=== PATIENT | female | born 1995 | race Caucasian/White ===

== ENCOUNTER 2017-10-06 22:07 | Emergency (ER) | payer OTHER | END 2017-10-07 01:34 | disposition left against medical advice (07) | LOC: M ED 22:07 | DX: R51 Headache (principal); Z53.21 Procedure and treatment not carried out due to patient leaving prior to being seen by health care provider ==

== ENCOUNTER → 2017-11-22 | Outpatient (CLI) | payer OTHER ==
[2017-11-22 17:47] LABS: BASO % 0.1 % (0.0-1.0); EOS # 0.1 10^3/uL (0.0-0.50); EOS % 0.9 % (0.0-3.0); HEMATOCRIT 37.8 % (36.0-47.0); IMMATURE GRANULOCYTE % 0.3 % (0-3.0); LYMPH # 2.6 10^3/uL (1.5-6.5); MEAN CORPUSCULAR HEMOGLOBIN 30.2 pg (27.0-33.0); MEAN CORPUSCULAR HGB CONC 34.4 g/dl (32.0-36.5); MEAN CORPUSCULAR VOLUME 87.7 fl (80.0-96.0); MONO # 0.8 10^3/uL (0.0-0.8); MONO % 8.5 % (0.0-5.0); NEUTROPHILS # 5.5 10^3/uL (1.8-7.7); NEUTROPHILS % 61.2 % (36.0-66.0); PLATELET COUNT, AUTOMATED 209 10^3/uL (150-450); RED BLOOD COUNT 4.31 10^6/uL (4.00-5.40); RED CELL DISTRIBUTION WIDTH 12.9 % (11.5-14.5)
[2017-11-22 23:03] LABS: CHLAMYDIA DNA AMPLIFICATION NEGATIVE (NEGATIVE); GC DNA AMPLIFICATION NEGATIVE (NEGATIVE)
[2017-11-24 10:32] LABS: HBsAg Prenatal NEGATIVE (NEGATIVE); HIV 1&2 SCREEN CENTAUR NEGATIVE (NEGATIVE); RUBELLA IgG QUALITATIVE IMMUNE (IMMUNE)
[2017-11-24 10:32] LABS: HEPATITIS C VIRUS ABY INDEX 0.1 INDEX (<0.8)
== END ==
LOC: M LAB 16:10
DX: Z34.81 Encounter for supervision of other normal pregnancy, first trimester (principal); Z3A.01 Less than 8 weeks gestation of pregnancy
CPT/HCPCS: 86762

== ENCOUNTER → 2018-01-24 | Outpatient (CLI) | payer OTHER | LOC: M RAD 13:55 | DX: O32.1XX0 Maternal care for breech presentation, not applicable or unspecified (principal); Z36.89 Encounter for other specified antenatal screening; Z3A.18 18 weeks gestation of pregnancy | CPT/HCPCS: 76811 ==

== ENCOUNTER → 2018-02-25 | Outpatient (CLI) | payer OTHER ==
--- NOTE | 2018-02-25 16:13 | REP ---
Clinical: Anatomical evaluation. Comparison: 01/24/2018 . Findings: Examination demonstrates a single live intrauterine in cephalic presentation. motion is identified by technologist. Placenta is noted anterior and grade grade 1 without evidence for placenta previa or abruption. Amniotic fluid volume is normal. Cervix measures 3.5 cm in length and appears closed. Nuchal cord cannot be excluded. Gestational age by LMP 23 weeks 1 day with BESSY the 06/23/2018 . Gestational age by current measurements 23 weeks 4 days with BESSY 06/20/2018 . FHR equals 141 beats per minute. Estimated weight 589 grams ( 54th percentile). Anatomical assessment demonstrates normal structures including cranium, choroid plexus, cavum, cerebellum/posterior fossa, facial features, lungs, four-chamber heart/ventricular outflow tracts, diaphragm, stomach, cord insertion/three-vessel cord, kidneys/bladder, spine, and extremities. Impression: 1. Single live intrauterine in cephalic presentation demonstrating appropriate interval growth. 2. Nuchal cord cannot be excluded. 3. Anatomical assessment is complete and normal. No gross abnormalities are identified. Electronically Signed by Fidel Simon MD 02/25/2018 04:04 P
== END ==
LOC: M RAD 09:02
PROVIDERS: ATTEND Advanced Practice Midwife
DX: Z34.02 Encounter for supervision of normal first pregnancy, second trimester (principal)

== ENCOUNTER → 2018-03-25 | Outpatient (CLI) | payer OTHER ==
[2018-03-25 11:35] LABS: HEMATOCRIT 33.9 % (36.0-47.0); HEMOGLOBIN 11.5 g/dl (12.0-15.5); MEAN CORPUSCULAR HEMOGLOBIN 30.6 pg (27.0-33.0); MEAN CORPUSCULAR HGB CONC 33.9 g/dl (32.0-36.5); MEAN CORPUSCULAR VOLUME 90.2 fl (80.0-96.0); PLATELET COUNT, AUTOMATED 236 10^3/uL (150-450); RED BLOOD COUNT 3.76 10^6/uL (4.00-5.40); WHITE BLOOD COUNT 9.9 10^3/uL (4.0-10.0)
== END ==
LOC: M LAB 10:05
PROVIDERS: ATTEND Advanced Practice Midwife
DX: Z34.02 Encounter for supervision of normal first pregnancy, second trimester (principal)

== ENCOUNTER → 2018-04-18 | Outpatient (CLI) | payer OTHER ==
[2018-04-18 15:05] LABS: CREATININE,RANDOM URINE 64.3 MG/DL; TOTAL PROTEIN,RANDOM URINE 10.4 MG/DL (0.0-12.0)
[2018-04-18 15:37] LABS: ALT/SGPT 13 U/L (12-78); BILIRUBIN,TOTAL 0.2 MG/DL (0.2-1.0); CREATININE FOR GFR 0.52 MG/DL (0.55-1.30); LDH LACTATE DEHYDROGENASE 178 U/L (84-246); URIC ACID 2.9 MG/DL (2.6-6.0)
== END ==
LOC: M LAB 14:12
PROVIDERS: ATTEND Obstetrics & Gynecology
DX: O16.3 Unspecified maternal hypertension, third trimester (principal); Z3A.00 Weeks of gestation of pregnancy not specified

== ENCOUNTER → 2018-04-21 | Outpatient (REF) | payer OTHER ==
[2018-04-21 13:51] LABS: INFLUENZA A AMPLIFICATION NEGATIVE (NEGATIVE); INFLUENZA B AMPLIFICATION NEGATIVE (NEGATIVE)
== END ==
LOC: M LAB REF 13:02
PROVIDERS: ATTEND Physician Assistant
DX: J11.1 Influenza due to unidentified influenza virus with other respiratory manifestations (principal)

== ENCOUNTER → 2018-04-22 | Outpatient (CLI) | payer OTHER ==
--- NOTE | 2018-04-22 14:34 | REP ---
Obstetric ultrasound for growth: There is a single intrauterine gestation in a vertex presentation. There is motion and cardiac activity. The heart rate is 142 beats per minute. The placenta is anterior without previa or abruptio with grade 2 maturity. The amniotic fluid volume subjectively is normal. The cervix measures 3.8 cm length. Gestational age by the ultrasound today is 31 weeks 4 days/BESSY 06/20/2018. Gestational age by the first ultrasound is 31 weeks 5 days/BESSY 06/19/2018 . Gestational age by LMP is 31 weeks 4 days/BESSY 06/23/2018. weight is 1803 grams (3 pounds, 15 ounces). This is the 53rd percentile for 31 weeks 1 day. Amniotic fluid index is 14.0 ( 0.8 - 23.8). Umbilical artery mid cord Doppler assessment: S/D ratio 2.80 (2.30-3.30) Resistive Index 0.64 (0.59-0.75 Diastolic Velocity 13.6 (>10 cm/sec) Electronically Signed by Suhail Tyson MD 04/22/2018 02:26 P
== END ==
LOC: M RAD 13:05
PROVIDERS: ATTEND Obstetrics & Gynecology
DX: O16.3 Unspecified maternal hypertension, third trimester (principal); Z3A.31 31 weeks gestation of pregnancy

== ENCOUNTER → 2018-05-13 | Outpatient (CLI) | payer OTHER ==
--- NOTE | 2018-05-13 12:32 | REP ---
OB ULTRASOUND: Real-time sonographic evaluation of the gravid uterus is performed. There is a single living intrauterine gestation with an estimated gestational age 34 weeks 1 day, EDC 06/23/2018. Today's measurements indicate appropriate growth. Biometry and Growth: BPD 85 mm = 34 weeks 3 days, 54th percentile HC 318 mm = 35 weeks 5 days, 74th percentile AC 297 mm = 33 weeks 5 days, 44th percentile FL 67 mm = 34 weeks 3 days, 55th percentile HC/AC ratio 1.07 within normal range. Estimated weight 2368 grams, 48th percentile. SEEN/GROSSLY UNREMARKABLE Lateral ventricles Yes Posterior fossa No Upper lip Yes Four-chamber heart Yes LVOT Yes RVOT Yes Stomach Yes Cord insertion Yes Three vessel cord Yes Kidneys Yes Bladder Yes Spine No Cervical length: Closed and measures 3 cm in length. heart rate: 147 beats per minute. position: Vertex. Placenta: Anterior and grade 2 to 3 with no previa or abruption. Amniotic fluid: Within normal limits, ALIDA 9.3 within normal range of 8.1 to 24.8. S/D ratio: 2.73. RI: 0.63 within normal range. Electronically Signed by Suhail Sahu MD 05/16/2018 11:09 A
== END ==
LOC: M RAD 10:54
PROVIDERS: ATTEND Advanced Practice Midwife
DX: O13.3 Gestational [pregnancy-induced] hypertension without significant proteinuria, third trimester (principal); Z3A.34 34 weeks gestation of pregnancy

== ENCOUNTER → 2018-05-18 | Outpatient (CLI) | payer OTHER ==
[2018-05-18 13:21] LABS: HEMATOCRIT 32.7 % (36.0-47.0); HEMOGLOBIN 10.6 g/dl (12.0-15.5); MEAN CORPUSCULAR HEMOGLOBIN 29.2 pg (27.0-33.0); MEAN CORPUSCULAR HGB CONC 32.4 g/dl (32.0-36.5); MEAN CORPUSCULAR VOLUME 90.1 fl (80.0-96.0); PLATELET COUNT, AUTOMATED 196 10^3/uL (150-450); RED BLOOD COUNT 3.63 10^6/uL (4.00-5.40); WHITE BLOOD COUNT 11.5 10^3/uL (4.0-10.0)
[2018-05-18 13:58] LABS: ALT/SGPT 14 U/L (12-78); BILIRUBIN,TOTAL 0.2 MG/DL (0.2-1.0); CREATININE FOR GFR 0.65 MG/DL (0.55-1.30); GLOMERULAR FILTRATION RATE > 60.0 (>60); LDH LACTATE DEHYDROGENASE 211 U/L (84-246); URIC ACID 4.2 MG/DL (2.6-6.0)
[2018-05-18 14:24] LABS: CREATININE,RANDOM URINE 19.8 MG/DL; TOTAL PROTEIN,RANDOM URINE 5.5 MG/DL (0.0-12.0)
== END ==
LOC: M SMT 10:24
PROVIDERS: ATTEND Advanced Practice Midwife
DX: O13.3 Gestational [pregnancy-induced] hypertension without significant proteinuria, third trimester (principal)

== ENCOUNTER → 2018-05-20 | Outpatient (CLI) | payer OTHER ==
[2018-05-20 12:05] LABS: CREATININE, SERUM 0.6 MG/DL (0.6-1.0)
[2018-05-20 12:06] LABS: CREATININE 24 HOUR, URINE 1606.8 MG/24HR (600-1800); CREATININE, URINE 61.8 MG/DL; TOTAL PROTEIN 24 HOUR URINE 301.6 MG/24HR (50-150); URINE TOTAL PROTEIN 11.6 MG/DL (0-12)
[2018-05-20 12:06] LABS: CREATININE, URINE 61.8 MG/DL
== END ==
LOC: M LAB 10:12
PROVIDERS: ATTEND Advanced Practice Midwife
DX: O13.3 Gestational [pregnancy-induced] hypertension without significant proteinuria, third trimester (principal)

== ENCOUNTER → 2018-06-01 | Outpatient (CLI) | payer OTHER ==
[~2018-06-01] MED LIST: COLA100C5 PO; IBUP-1114 PO; MAPA500T2 PO; MOM30SS PO; PRENTAB9 PO
--- NOTE | 2018-06-01 14:58 | REP ---
Clinical: well-being Comparison: 05/13/2018 . Findings: Examination demonstrates a single live intrauterine in cephalic presentation. motion is identified by technologist. Placenta is noted anterior and grade grade III without evidence for placenta previa or abruption. Amniotic fluid volume is normal. Cervix measures 3.8 cm in length and appears closed. No evidence for nuchal cord. Gestational age by LMP 36 weeks 6 days with BESSY 06/23/2018 . Gestational age by current measurements 36 weeks 5 days with BESSY 06/24/2018 . FHR equals 136 beats per minute. BPD 9.0 cm 36 weeks 4 days HC 31.6 cm 35 weeks 3 days AC 33.9 cm 37 weeks 6 days FL 7.2 cm 36 weeks 4 days HL 6.4 cm 36 weeks 6 days HC/AC ratio 0.93 Estimated weight 3123 grams ( 57 percentile). Amniotic fluid index: 9.2 cm (7.5 - 24.5) Umbilical cord SD ratio: 2.51 (1.64 - 2.64) Impression: Single live advanced gestation in cephalic presentation demonstrating appropriate interval growth. No gross abnormalities are identified Electronically Signed by Fidle Simon MD 06/01/2018 02:49 P
== END ==
LOC: M RAD 11:18
PROVIDERS: ATTEND Advanced Practice Midwife
DX: O13.3 Gestational [pregnancy-induced] hypertension without significant proteinuria, third trimester (principal); Z3A.36 36 weeks gestation of pregnancy

== ENCOUNTER 2018-06-02 19:30 | Inpatient (IN) | payer OTHER ==
[~2018-06-02] VITALS: Ht 175.3 cm; Wt 93.7 kg
[2018-06-02 19:51] VITALS: BP 127/72
[2018-06-02] MEDS ORDERED: miSOPROStol 50 MCG 1/2 TAB (S0191) As Ordered ONE (20:27)
[2018-06-02 20:28] LABS: HEMATOCRIT 31.9 % (36.0-47.0); HEMOGLOBIN 10.6 g/dl (12.0-15.5); MEAN CORPUSCULAR HEMOGLOBIN 28.9 pg (27.0-33.0); MEAN CORPUSCULAR HGB CONC 33.2 g/dl (32.0-36.5); MEAN CORPUSCULAR VOLUME 86.9 fl (80.0-96.0); PLATELET COUNT, AUTOMATED 186 10^3/uL (150-450); RED BLOOD COUNT 3.67 10^6/uL (4.00-5.40); WHITE BLOOD COUNT 10.7 10^3/uL (4.0-10.0)
[2018-06-02] MEDS: miSOPROStol 50 MCG 1/2 TAB (S0191) SL SCH (20:42)
--- NOTE | 2018-06-02 21:31 | HPE ---
DATE OF ADMISSION: 06/02/2018 HISTORY: 23-year-old G-1 at 37 0/7 weeks gestation by 7 week ultrasound, estimated date of confinement (EDC) of 06/23/2018 presents for labor induction due to diagnosis of preeclampsia. She had multiple elevated blood pressures in recent weeks starting at 33 weeks gestation. She had 24 urine which showed 301 mg of protein. Denies contractions or vaginal bleeding. She denies any headaches or blurred vision. COURSE: The patient received care at 12 weeks gestation on 11/04/2017. Her first trimester blood pressure was 130/76, weight 163 pounds. She developed hypertension at 33 plus weeks gestation on 05/10/2018. She had a blood pressure of 152/88. She did complain intermittently of headaches, as well as lower extremity edema. MEDICAL HISTORY: Noncontributory. SURGICAL HISTORY: None. ALLERGIES: None. SOCIAL HISTORY: The patient denies cigarettes, alcohol or drug use. Father of baby is involved. She lives in [place]. FAMILY HISTORY: Noncontributory. PHYSICAL EXAMINATION: Blood pressure 127/72, pulse 84. She is no apparent distress. Head and neck exam: Normal. Lungs clear. Heart regular rate and rhythm. Abdomen nontender, . heart tones category I. Sterile vaginal exam: Closed cervix, 50% efface, -2+ posterior, vertex moderate consistency. Extremities: Nontender with trace edema. LABORATORY: Blood type B positive, rubella immune, RPR nonreactive. Group B streptococcus (GBS) negative on 05/27/2018 ASSESSMENT: 23-year-old G-1, 37 weeks gestation, diagnosed with preeclampsia. PLAN: The patient is admitted on 06/02/2018. A repeat preeclampsia profile. Risk of induction were discussed.
[2018-06-02 21:56] LABS: ALT/SGPT 13 U/L (12-78); BILIRUBIN,TOTAL 0.1 MG/DL (0.2-1.0); CREATININE FOR GFR 0.61 MG/DL (0.55-1.30); GLOMERULAR FILTRATION RATE > 60.0 (>60); LDH LACTATE DEHYDROGENASE 229 U/L (84-246); URIC ACID 3.9 MG/DL (2.6-6.0)
[2018-06-02 22:53] VITALS: BP 108/54
[2018-06-03] VITALS (56 sets, daily range): BP systolic 99–162; BP diastolic 56–114
[2018-06-03] MEDS: miSOPROStol 50 MCG 1/2 TAB (S0191) SL SCH ×2 (01:10→05:20)
[2018-06-03] MEDS ORDERED: OXYTOCIN DRIP 30 UNITS in APPROPRIATE DILUENT 1 EA IV SCH (09:15)
--- NOTE | 2018-06-03 09:16 | IPNPDOC ---
Text Note Date of Service The patient was seen on 06/03/18. NOTE Remains comfortable UC irregular, mild FH 135, Cat I tracing SVE /-1. Light bloody show Cooks Catheter placed . Start Pitocin Dr Maynard aware of pt status VS,Fishbone, I+O VS, Fishbone, I+O Laboratory Tests 06/02/18 20:22 Red Blood Count 3.67 L, Mean Corpuscular Volume 86.9, Mean Corpuscular Hemoglobin 28.9, Mean Corpuscular Hemoglobin Concent 33.2, Red Cell Distribution Width 13.2, Aspartate Amino Transf (AST/SGOT) 21, Alanine Aminotransferase (ALT/SGPT) 13, Lactate Dehydrogenase 229, Total Bilirubin 0.1 L, Uric Acid 3.9 Vital Signs Date Time Temp Pulse Resp B/P (MAP) Pulse Ox O2 Delivery O2 Flow Rate FiO2 06/03/18 05:22 87 128/86 (100) 06/03/18 03:00 97.5 I&O- Last 24 Hours up to 6 AM 06/03/18 06:00 Intake Total 1000 ml Output Total 2 ml Balance 998 ml Marcela Palacios CNM Jun 03, 2018 09:16
[2018-06-03] MEDS: LR 1,000 ML IV SCH ×3 (09:42→17:11)
[2018-06-03] MEDS ORDERED: PROMETHAZINE INJ 25 MG/ML VIAL (J2550) IV ONE (10:00)
[2018-06-03] MEDS ORDERED: BUTORPHANOL 2 MG/ML INJ (J0595) IV ONE (10:00)
--- NOTE | 2018-06-03 16:56 | IPNPDOC ---
Text Note Date of Service The patient was seen on 06/03/18. NOTE Reporting increased discomfort UC 2-4 minutes apart x 45-60 seconds, moderate FH 135, moderate variability, Cat I SVAngie lopez catheter sitting in vagina, /-1, moderate bloody show Pt is requesting epidural VS,Fishbone, I+O VS, Fishbone, I+O Laboratory Tests 06/02/18 20:22 Red Blood Count 3.67 L, Mean Corpuscular Volume 86.9, Mean Corpuscular Hemoglobin 28.9, Mean Corpuscular Hemoglobin Concent 33.2, Red Cell Distribution Width 13.2, Aspartate Amino Transf (AST/SGOT) 21, Alanine Aminotransferase (ALT/SGPT) 13, Lactate Dehydrogenase 229, Total Bilirubin 0.1 L, Uric Acid 3.9 Vital Signs Date Time Temp Pulse Resp B/P (MAP) Pulse Ox O2 Delivery O2 Flow Rate FiO2 06/03/18 15:04 97.9 06/03/18 15:03 71 16 122/75 (91) I&O- Last 24 Hours up to 6 AM 06/03/18 06:00 Intake Total 1000 ml Output Total 2 ml Balance 998 ml Marcela Palacios CNM Jun 03, 2018 16:56
[2018-06-03] MEDS ORDERED: FENTANYL 2MCG/ML ROPIVACAINE 0.2% IN 0.9% NACL 100ML IVBAG As Ordered ONE (17:09)
[2018-06-03 17:24] LABS: HEMATOCRIT 32.2 % (36.0-47.0); HEMOGLOBIN 10.5 g/dl (12.0-15.5); MEAN CORPUSCULAR HEMOGLOBIN 28.2 pg (27.0-33.0); MEAN CORPUSCULAR HGB CONC 32.6 g/dl (32.0-36.5); MEAN CORPUSCULAR VOLUME 86.6 fl (80.0-96.0); PLATELET COUNT, AUTOMATED 189 10^3/uL (150-450); RED BLOOD COUNT 3.72 10^6/uL (4.00-5.40)
[2018-06-03] MEDS ORDERED: FENTANYL/ROPIVACAINE/NACL BAG 100 ML EPIDURAL SCH (18:30)
[2018-06-03] MEDS ORDERED: REFRIGERATOR IV KEYS XX PRN (18:30)
[2018-06-03] MEDS ORDERED: EPIDURAL/PCA KEYS XX PRN (18:30)
[2018-06-03] MEDS ORDERED: LACTATED RINGER'S 1000 ML IV PRN (18:30)
[2018-06-03] MEDS ORDERED: NALOXONE INJ 0.4 MG/1 ML VIAL (J2310) IV PRN (18:30)
[2018-06-03] MEDS ORDERED: EPIDURAL COMMENT XX SCH (18:30)
[2018-06-03] MEDS ORDERED: diphenhydrAMINE INJ 50MG/ML VIAL (J1200) IV PRN (18:30)
[2018-06-03] MEDS ORDERED: ONDANSETRON 4MG/2ML VIAL (J2405) IV PRN (18:30)
[2018-06-03] MEDS: ePHEDrine SULFATE 25 MG/5 ML(5MG/ML) SYRINGE IV PRN ×3 (18:56→19:14)
[2018-06-03 23:13] LABS: CORD GAS HCO3 V 20.9 MEQ/L; CORD GAS O2 SAT V 80.6 %; CORD GAS PCO2 V 41.6 mmHg; CORD GAS PH V 7.318 UNITS; CORD GAS PO2 V 37.6 mmHg; CORD GAS TCO2 V 22.1 MEQ/L
[2018-06-03 23:15] LABS: CORD GAS ABE A -11.8; CORD GAS PCO2 A 48.7 mmHg; CORD GAS PH A 7.161 UNITS; CORD GAS PO2 A 58.7 mmHg; CORD GAS SBC A 15.4 MEQ/L; CORD GAS TCO2 A 18.5 MEQ/L
[2018-06-03] MEDS ORDERED: RHOGAM 300 MCG (1500 IU) INJ (J2790) IM SCH (23:15)
[2018-06-03] MEDS ORDERED: miSOPROStol 200 MCG TAB (S0191) PR ONE (23:15)
[2018-06-03] MEDS ORDERED: MOM 30ML SUSPENSION UDC PO PRN (23:15)
[2018-06-03] MEDS ORDERED: MEASLES,MUMPS,RUBELLA VACCINE INJ (MMR-II) (90707) SC SCH (23:15)
[2018-06-03] MEDS ORDERED: DOCUSATE SODIUM 100 MG CAP PO PRN (23:15)
[2018-06-03] MEDS ORDERED: METHYLERGONOVINE MALEATE 0.2 MG TAB PO PRN (23:15)
[2018-06-03] MEDS ORDERED: DIBUCAINE 1% OINTMENT 30GM TOP PRN (23:15)
[2018-06-03] MEDS ORDERED: ACETAMINOPHEN 500 MG TAB PO PRN (23:15)
[2018-06-03] MEDS ORDERED: ANUSOL HC CREAM 30GM TOP PRN (23:15)
--- NOTE | 2018-06-03 23:16 | DNPDOC ---
[facility] Delivery Note Delivery Note DATE OF DELIVERY: 06/03/18 PREDELIVERY DIAGNOSIS: 37-1/7 weeks' gestation. IOL for GHTN and preeclampsia. POST DELIVERY DIAGNOSIS: Delivered. PROCEDURE: Spontaneous vaginal delivery. PROVIDER: Marcela Palacios CNM ANESTHESIA: Epidural ESTIMATED BLOOD LOSS: 400 mL. FINDINGS: 6 pound 11 ounce, 3040gm female infant, Score 8/9, loose nuchal cord times 1 reduced prior to delivery. DELIVERY SUMMARY: Patient is a 23-year-old 1 now para 1-0-0-1 who was admitted to labor and delivery for induction of labor due to gestational hypertension and preeclampsia. She received misoprostol x 3 doses followed by Cooks catheter and pitocin. Epidural was utilized for labor coping. FD 2109. Viable female child delivered MARIA DEL CARMEN after reduction of loose nuchal cord @ 2230. Spontaneous respirations with stimulation, transitioned on maternal abdomen. Cord gases obtained and are pending. Cord doubly clamped and cut once pulsations ceased by FOB under my direction. Circumvallata placenta delivered Novak, intact with 3v cord @ 2236 followed by brisk bleeding. Fundal massage, IV pitocin and misoprostol 1000mcg VT provided excellent control of bleeding. 1st degree perineal laceration repaired in the usual fashion with 3-0 vicryl rapide. Infant wt 6#11, 3040 gms. Sponge, sharp and instrument count correct. Parents are naming their daughter Marcela Palacios CNM Jun 03, 2018 23:16
[2018-06-04 00:56] VITALS: BP 127/77
[2018-06-04 06:30] VITALS: BP 122/69
--- NOTE | 2018-06-04 07:42 | IPNPDOC ---
Text Note Date of Service The patient was seen on 06/04/18. NOTE 1 Feels well. Adequate pain management. Reports coccyx pain. Voiding VSS, normotensive Breasts soft, Fundus firm, NT, down 1 FB Lochia rubra light without odor Perineum well approximated Routine care. Anticipate D/C in am VS,Fishbone, I+O VS, Fishbone, I+O Laboratory Tests 06/03/18 17:06 Red Blood Count 3.72 L, Mean Corpuscular Volume 86.6, Mean Corpuscular Hemoglobin 28.2, Mean Corpuscular Hemoglobin Concent 32.6, Red Cell Distribution Width 13.0 Vital Signs Date Time Temp Pulse Resp B/P (MAP) Pulse Ox O2 Delivery O2 Flow Rate FiO2 06/04/18 06:30 99.3 77 16 122/69 (86) I&O- Last 24 Hours up to 6 AM 06/04/18 06:00 Intake Total 3631 ml Output Total 4450 ml Balance -819 ml Marcela Palacios CNM Jun 04, 2018 07:42
[2018-06-04] MEDS: PRENATAL VITAMINS CHEWABLE TABLET PO SCH (09:34)
[2018-06-04] MEDS: IBUPROFEN 800 MG TAB PO PRN ×2 (09:35→18:29)
[2018-06-04 18:00] VITALS: BP 121/72
[2018-06-05 06:19] VITALS: BP 103/59
[2018-06-05] MEDS: PRENATAL VITAMINS CHEWABLE TABLET PO SCH (08:10)
[2018-06-05] MEDS ORDERED: MAPA500T2 PO (11:56)
[2018-06-05] MEDS ORDERED: IBUP-1114 PO (11:56)
[2018-06-05] MEDS ORDERED: MOM30SS PO (11:56)
[2018-06-05] MEDS ORDERED: PRENTAB9 PO (11:56)
[2018-06-05] MEDS ORDERED: COLA100C5 PO (11:56)
== END 2018-06-05 13:35 | disposition home or self-care (01) | DRG 560 ==
LOC: M LDI 19:30 → M OBS 06-04 00:45
PROVIDERS: ADMIT Specialist; ATTEND Advanced Practice Midwife
PROC: 3E0P7GC Introduction of Other Therapeutic Substance into Female Reproductive, Via Natural or Artificial Opening (ICD-10-PCS; 2018-06-02)
PROC: 10E0XZZ Delivery of Products of Conception, External Approach (ICD-10-PCS; principal; 2018-06-03)
PROC: 0HQ9XZZ Repair Perineum Skin, External Approach (ICD-10-PCS; 2018-06-03)
DX: O14.94 Unspecified pre-eclampsia, complicating childbirth (principal); Z3A.37 37 weeks gestation of pregnancy; O69.81X0 Labor and delivery complicated by cord around neck, without compression, not applicable or unspecified; O70.0 First degree perineal laceration during delivery; Z37.0 Single live birth

== ENCOUNTER → 2019-10-24 | Outpatient (REF) | payer BC, OTHER ==
[2019-10-25 13:23] LABS: CHLAMYDIA DNA AMPLIFICATION NEGATIVE (NEGATIVE); GC DNA AMPLIFICATION NEGATIVE (NEGATIVE)
== END ==
LOC: M SFHCWAGY 10:59
PROVIDERS: ATTEND Advanced Practice Midwife
DX: Z11.3 Encounter for screening for infections with a predominantly sexual mode of transmission (principal)

== ENCOUNTER → 2019-10-24 | Outpatient (REF) | payer OTHER | LOC: M LAB REF 08:00 | PROVIDERS: ATTEND Advanced Practice Midwife | DX: Z12.4 Encounter for screening for malignant neoplasm of cervix (principal) ==

== ENCOUNTER → 2020-03-26 | Outpatient (REF) | payer OTHER ==
[2020-03-26 14:16] LABS: HCG, SERUM QUALITATIVE NEGATIVE (NEGATIVE)
[2020-03-26 14:35] LABS: FOLLICLE STIMULATING HORMONE 4.8 mIU/mL; FREE T4 0.94 NG/DL (0.76-1.46); LUTEINIZING HORMONE 15.7 mIU/mL; THYROID STIMULATING HORMONE 0.876 uIU/ML (0.358-3.740)
== END ==
LOC: M PLALAB 09:50
PROVIDERS: ATTEND Advanced Practice Midwife
DX: N92.6 Irregular menstruation, unspecified (principal)

== ENCOUNTER → 2021-04-21 | Outpatient (CLI) | payer OTHER | LOC: M PLALAB 14:05 | PROVIDERS: ATTEND Advanced Practice Midwife | DX: O03.9 Complete or unspecified spontaneous abortion without complication (principal) ==

== ENCOUNTER → 2021-12-04 | Outpatient (CLI) | payer BC, OTHER ==
[~2021-12-04] MED LIST changes: +ONDA4TAB6 PO
[2021-12-04 14:47] LABS: APPEARANCE, URINE MANUAL CLEAR (CLEAR); COLOR, URINE MANUAL COLORLESS (YELLOW)
[2021-12-04 14:48] LABS: BILIRUBIN, URINE MANUAL NEGATIVE (NEGATIVE); BLOOD URINE MANUAL NEGATIVE (NEGATIVE); GLUCOSE, URINE (UA) MANUAL NEGATIVE (NEGATIVE); KETONE, URINE MANUAL NEGATIVE (NEGATIVE); LEUKOCYTE ESTERASE, URINE MAN NEGATIVE (NEGATIVE); NITRITE, URINE MANUAL NEGATIVE (NEGATIVE); PROTEIN, URINE MANUAL NEGATIVE (NEGATIVE); SPECIFIC GRAVITY,URINE MANUAL 1.005 (1.002-1.035); UROBILINOGEN, URINE MANUAL NORMAL (NORMAL)
[2021-12-04 15:01] LABS: HEMATOCRIT 37.6 % (36.0-47.0); HEMOGLOBIN 12.6 g/dl (12.0-15.5); MEAN CORPUSCULAR HEMOGLOBIN 29.8 pg (27.0-33.0); MEAN CORPUSCULAR HGB CONC 33.5 g/dl (32.0-36.5); MEAN CORPUSCULAR VOLUME 88.9 fl (80.0-96.0); PLATELET COUNT, AUTOMATED 235 10^3/uL (150-450); RED BLOOD COUNT 4.23 10^6/uL (4.00-5.40); WHITE BLOOD COUNT 8.8 10^3/uL (4.0-10.0)
[2021-12-04 16:18] LABS: HEPATITIS B SURFACE ANTIGEN NEGATIVE (NEGATIVE); HEPATITIS C VIRUS ABY INDEX < 0.0 INDEX (<0.8)
== END ==
LOC: M LAB 13:45
PROVIDERS: ATTEND Obstetrics & Gynecology Obstetrics
DX: Z34.81 Encounter for supervision of other normal pregnancy, first trimester (principal)

== ENCOUNTER → 2021-12-31 | Outpatient (CLI) | payer BC, OTHER | LOC: M WHC 14:09 | PROVIDERS: ATTEND Obstetrics & Gynecology Obstetrics | DX: Z34.82 Encounter for supervision of other normal pregnancy, second trimester (principal); Z3A.19 19 weeks gestation of pregnancy ==

== ENCOUNTER → 2022-03-03 | Outpatient (CLI) | payer BC, OTHER ==
[2022-03-03 15:28] LABS: HEMATOCRIT 30.1 % (36.0-47.0); HEMOGLOBIN 9.9 g/dl (12.0-15.5); MEAN CORPUSCULAR HEMOGLOBIN 29.3 pg (27.0-33.0); MEAN CORPUSCULAR HGB CONC 32.9 g/dl (32.0-36.5); MEAN CORPUSCULAR VOLUME 89.1 fl (80.0-96.0); PLATELET COUNT, AUTOMATED 210 10^3/uL (150-450); RED BLOOD COUNT 3.38 10^6/uL (4.00-5.40); WHITE BLOOD COUNT 8.8 10^3/uL (4.0-10.0)
[2022-03-03 16:02] LABS: TOTAL 25(OH) VITAMIN D 20.2 NG/ML (20.0-100.0)
== END ==
LOC: M LAB 13:38
PROVIDERS: ATTEND Obstetrics & Gynecology
DX: Z34.82 Encounter for supervision of other normal pregnancy, second trimester (principal)

== ENCOUNTER → 2022-11-15 | Outpatient (REF) | payer BC, OTHER | LOC: M LAB REF 10:38 | PROVIDERS: ATTEND Physician Assistant Medical | DX: J02.9 Acute pharyngitis, unspecified (principal) ==